=== PATIENT | female | born 1940 ===

== ENCOUNTER 2018-07-24 12:37 | Emergency (ER) | payer OTHER ==
[~2018-07-24] VITALS: Ht 157.5 cm; Wt 45.4 kg
[~2018-07-24 12:37] MED LIST: INTESTINEX1 CA1 PO; PROTONIX40 MG PO; SYNTHROID50 MCG; ZOCOR5 MG
== END 2018-07-24 18:30 | disposition home or self-care (01) ==
LOC: ER 12:37
DX: R42 Dizziness and giddiness (principal); G45.8 Other transient cerebral ischemic attacks and related syndromes